=== PATIENT | male | born 1955 | race Caucasian/White ===

== ENCOUNTER 2017-11-29 19:36 | Emergency (ER) | payer OTHER ==
[~2017-11-29] VITALS: Ht 177.8 cm; Wt 79.8 kg
[2017-11-29] MEDS ORDERED: GLUMETZA1000 (19:42)
[2017-11-29] MEDS ORDERED: GLIPIZIDE 10 MG10 MG PO (19:42)
[2017-11-29] MEDS ORDERED: ATORVASTATIN CA40 MG PO (19:43)
[2017-11-29] MEDS ORDERED: HYDROCODONE-AP1 EAC6 PO (22:07)
[2017-11-29 22:25] VITALS: BP 150/89
[2017-12-02] MEDS ORDERED: ASPIR 8181 MG PO (09:55)
== END 2017-11-29 22:27 | disposition home or self-care (01) ==
LOC: ER 19:36
DX: S61.221A Laceration with foreign body of left index finger without damage to nail, initial encounter (principal); S61.223A Laceration with foreign body of left middle finger without damage to nail, initial encounter; S61.225A Laceration with foreign body of left ring finger without damage to nail, initial encounter; E11.9 Type 2 diabetes mellitus without complications; E78.00 Pure hypercholesterolemia, unspecified; W31.2XXA Contact with powered woodworking and forming machines, initial encounter; Y93.89 Activity, other specified; Y92.89 Other specified places as the place of occurrence of the external cause; Y99.8 Other external cause status

== ENCOUNTER → 2017-12-02 | Day surgery (SDC) | payer OTHER ==
[~2017-12-02] VITALS: Ht 177.8 cm; Wt 80.7 kg
[~2017-12-02] MED LIST: ASPIR 8181 MG PO; ATORVASTATIN CA40 MG PO; GLIPIZIDE 10 MG10 MG PO; GLUMETZA1000; HYDROCODONE-AP1 EAC6 PO
--- NOTE | ~2017-12-02 | O ---
[facility] [place] [facility] [place] [address] OPERATIVE REPORT Name: NAYA CAZARES JR Room #: [facility].#: [id number] Admission: 12/02/17 Attend Phys: Belkis Gallo, Discharge: Date of : 55 Report #: [id number] THIS REPORT FOR: //name// CC: Ulices Gallo DATE OF SERVICE: 12/02/2017 PREOPERATIVE DIAGNOSIS: Left index finger, long finger and ring finger wound with possible tendon and nerve injury. POSTOPERATIVE DIAGNOSES: 1. Left index finger wound. 2. Left long finger wound with contusion to the radial digital nerve. 3. Left long finger wound with 60% flexor digitorum profundus transection zone 2. 4. Left long finger ulnar digital nerve complete transection. 5. Left ring finger wound with ulnar digital nerve transection. PROCEDURE PERFORMED: 1. Exploration left index finger wound. 2. Exploration left long finger wound with ulnar digital nerve reconstruction using allograft nerve. 3. Left long finger flexor digitorum profundus repair zone 2. 4. Left long finger radial digital nerve wrapping. 5. Wound exploration with ulnar digital nerve repair. SURGEON: Belkis Gallo MD ANESTHESIA: General mask anesthesia. ESTIMATED BLOOD LOSS: Minimal. TOURNIQUET TIME: 120 minutes. COMPLICATIONS: None. CONDITION: Stable. DISPOSITION: Recovery room. INDICATIONS: The patient is a 62-year-old male with the above-mentioned diagnoses. He elects for operative treatment. The risks, benefits, alternatives and complications were discussed including but not limited to infection, damage to vessels or nerves, incomplete relief of the symptoms, stiffness, wound healing problems and incomplete recovery of his sensation and [facility] [address] [place] [address] OPERATIVE REPORT Name: NAYA CAZARES Room #: [facility].#: [id number] Admission: 12/02/17 Attend Phys: Belkis Gallo, Discharge: Date of : 55 Report #: [id number] tendon rupture. Informed consent was obtained. The correct extremity was identified and labeled by myself after verbal confirmation of patient as well as visual confirmation and signed informed consent. DESCRIPTION OF PROCEDURE: All the procedure was done with a 3.5 x loupe magnification. Next, the left extremity was sterilely prepped and draped in the usual fashion. Final timeout was taken to verify the correct patient, operative procedure, operative site, all concurred. The arm was elevated, exsanguinated and tourniquet inflated. Next, the index finger wound was opened. The sutures were removed. The index finger wound was opened. The neurovascular bundles were identified and were all intact. The flexor tendon sheath was intact as well. Attention placed to the long finger. The wound was opened. There was noted to be approximately 60% transection of the volar aspect of the FDP tendon. The wound was then extended both proximally and distally. The neurovascular bundles were identified on the radial side. The nerve was contused but intact. On the ulnar side, there was a significant contusion for a great length of the nerve. The nerve was freed from its surrounding tissues and was cut to nice healthy fascicles. This approximately 2.5 mm gap. The FDS was noted to be intact. Next, attention placed to the ring finger. The wound was extended in order to visualize the ulnar digital nerve. The radial digital nerve was intact. The tendons were intact, but the ulnar digital nerve was completely transected and was identified and trimmed to nice healthy fascicles. Next, the index finger wound was irrigated and closed. Next, a 1-2 mm AxoGen allograft nerve was utilized for the ulnar digital nerve and the long finger. It was sutured using microsurgical techniques with 9-0 nylon suture. Then to each end, approximately 2.7 mm of nerve was utilized. Careful attention placed to suturing at the epineurium only. Next, the correct patient sites were wrapped and sutured in order to obtain a tension-free repair on the actual correct patient site. The repair looked to be in excellent condition. Next, approximately 1.5 cm of the wrap was placed around the radial digital nerve. This was sutured in place to the epineurium with a 9-0 nylon suture. Next, attention placed to other ring finger. The ring finger nerve was able to be repaired primarily with 9-0 nylon suture, was sutured into the epineurium. It was then wrapped with the tensioning sutures. Next, attention was placed to the long finger FDP tendon. It was repaired with 3-0 Supramid suture and a locked cruciate stitch. Once this was done, there was no gapping. The tendon glided smoothly and there was a complete yarsanism of normal arcade. The wounds were all thoroughly irrigated. The skin was closed with 4-0 nylon suture. Wounds were dressed with Xeroform and sterile gauze. Kemal [facility] [address] [place] [address] OPERATIVE REPORT Name: KOVARIK,NAYA E Room #: [facility]#: [id number] Admission: 12/02/17 Attend Phys: Belkis Gallo, Discharge: Date of : 55 Report #: [id number] was placed in a bulky dressing and a volar and dorsal slab splint with the wrist and fingers flexed. All fingers were pink with brisk capillary refill at the conclusion of the case after deflation of the tourniquet and after application of the splint. All sponge, needle counts were correct. The patient transferred to postoperative recovery in stable condition. By: [id number] Belkis Gallo MD /nt
[2017-12-02 09:03] VITALS: BP 123/61
[2017-12-02 12:51] VITALS: BP 123/61
== END | disposition home or self-care (01) ==
LOC: OR 08:32
DX: S61.201A Unspecified open wound of left index finger without damage to nail, initial encounter (principal); S61.203A Unspecified open wound of left middle finger without damage to nail, initial encounter; S61.205A Unspecified open wound of left ring finger without damage to nail, initial encounter; S64.493A Injury of digital nerve of left middle finger, initial encounter; S64.02XA Injury of ulnar nerve at wrist and hand level of left arm, initial encounter; S66.103A Unspecified injury of flexor muscle, fascia and tendon of left middle finger at wrist and hand level, initial encounter; E11.9 Type 2 diabetes mellitus without complications; E78.00 Pure hypercholesterolemia, unspecified; Z87.891 Personal history of nicotine dependence; Z79.899 Other long term (current) drug therapy; Z79.82 Long term (current) use of aspirin; Z79.891 Long term (current) use of opiate analgesic; X58.XXXA Exposure to other specified factors, initial encounter; Y93.89 Activity, other specified; Y92.89 Other specified places as the place of occurrence of the external cause; Y99.8 Other external cause status
CPT/HCPCS: 50010; 50101; 50386; 56526; 56528; 56532; 57091; 62110; 62900; 70005